=== PATIENT | female | born 1975 | race Two or more races ===

== ENCOUNTER 2022-10-02 10:25 | Outpatient (CLI) | payer OTHER | END 2022-10-02 10:26 | disposition home or self-care (01) | LOC: NUCLEAR | DX: M81.0 Age-related osteoporosis without current pathological fracture (principal) ==

== ENCOUNTER → 2022-10-02 | Outpatient (CLI) | payer OTHER | END | disposition home or self-care (01) | LOC: MAMO-SONO 08:56 | DX: N63.0 Unspecified lump in unspecified breast (principal); Z12.31 Encounter for screening mammogram for malignant neoplasm of breast; N64.4 Mastodynia; N60.11 Diffuse cystic mastopathy of right breast; N60.12 Diffuse cystic mastopathy of left breast; N83.00 Follicular cyst of ovary, unspecified side; N80.9 Endometriosis, unspecified; D25.9 Leiomyoma of uterus, unspecified ==

== ENCOUNTER → 2025-04-03 | Emergency (ER) | payer BC ==
[~2025-04-03] VITALS: Ht 154.9 cm; Wt 52.2 kg
[~2025-04-03] MED LIST: KETOROLAC TROMETHAMINE 60 MG VIAL IM ONE
== END | disposition home or self-care (01) ==
LOC: ER 08:19
DX: H61.23 Impacted cerumen, bilateral (principal)

== ENCOUNTER 2025-09-14 23:33 | Emergency (ER) | payer BC ==
[~2025-09-14] VITALS: Ht 152.4 cm; Wt 52.2 kg
[2025-09-15 00:17] VITALS: BP 106/74; O2SAT 100
[2025-09-15] MEDS ORDERED: KETOROLAC TROMETHAMINE 60 MG VIAL IM STA (01:09)
[2025-09-15] MEDS ORDERED: KETO10TA2 PO (04:03)
== END 2025-09-15 04:09 ==
LOC: ER
DX: S09.8XXA Other specified injuries of head, initial encounter (principal); W22.09XA Striking against other stationary object, initial encounter; Y93.89 Activity, other specified; Y92.010 Kitchen of single-family (private) house as the place of occurrence of the external cause